=== PATIENT | female | born 1955 | race Caucasian/White ===

== ENCOUNTER 2023-10-04 08:14 | Day surgery (SDC) | payer MEDICARE, OTHER ==
[~2023-10-04] VITALS: Ht 160 cm; Wt 36.8 kg
[2023-10-04] VITALS (8 sets, daily range): BP systolic 113–126; BP diastolic 58–77; PULSE 67–69
[~2023-10-04 08:14] MED LIST: AMLO-257 PO; ATOR40TA28 PO; CEFU250T87 PO; CHOL25TA4 PO; EMPA10TA3 PO; EZET10TA57 PO; LOSA-381 PO; METF-1211 PO; SODIUM CHLORIDE 0.9% 1,000 ML ONE
[2023-10-04] MEDS ORDERED: DiphenhydrAMINE HCL 50 MG CAPSULE PO ONE (09:00)
[2023-10-04] MEDS ORDERED: DIAZEPAM 5 MG TABLET PO ONE (09:00)
[2023-10-04] MEDS ORDERED: SODIUM CHLORIDE 0.9% 1,000 ML IV SCH (09:00)
[2023-10-04] MEDS ORDERED: SODIUM CHLORIDE 0.9% 1,000 ML IV ONE (09:00)
[2023-10-04] MEDS ORDERED: ASPIRIN 81 MG CHEWABLE TABLET PO ONE (09:00)
[2023-10-04] MEDS ORDERED: ASPIRIN 81 MG CHEWABLE TABLET ONE (09:05)
[2023-10-04] MEDS ORDERED: DiphenhydrAMINE HCL 50 MG CAPSULE ONE (09:06)
[2023-10-04] MEDS ORDERED: DIAZEPAM 5 MG TABLET ONE (09:07)
[2023-10-04 09:46] LABS: GLUCOMETER DEV NAME(LOC) SDS.; GLUCOSE,POINT OF CARE 111 MG/DL (70-110)
[2023-10-04] MEDS ORDERED: LIDOCAINE/PF 1% 30 ML VIAL ONE (10:11)
[2023-10-04] MEDS ORDERED: SODIUM BICARBONATE 50 MEQ/50 ML VIAL ONE (10:11)
[2023-10-04] MEDS ORDERED: IOHEXOL 300 MG/ML 100 ML VIAL ONE (10:11)
[2023-10-04] MEDS ORDERED: HEPARIN SODIUM 1000 UNITS/NS 500 ML ONE ×2 (10:35→10:36)
[2023-10-04] MEDS ORDERED: FentaNYL CITRATE PF 100 MCG/2 ML VIAL ONE (10:52)
[2023-10-04] MEDS ORDERED: MIDAZOLAM HCL 2 MG/2 ML VIAL ONE (10:52)
[2023-10-04] MEDS ORDERED: MIDAZOLAM HCL 2 MG/2 ML VIAL IVP ONE (11:15)
[2023-10-04] MEDS ORDERED: HEPARIN SODIUM 2,000 UNITS in HEPARIN SODIUM 1000 UNITS/NS 1,000 ML IARTER ONE (11:15)
[2023-10-04] MEDS ORDERED: LIDOCAINE 1% 30 ML/SOD BICARB 8.4% 4 ML SQ ONE (11:15)
[2023-10-04] MEDS ORDERED: IOHEXOL 300 MG/ML 100 ML VIAL IARTER ONE (11:15)
[2023-10-04] MEDS ORDERED: FentaNYL CITRATE PF 100 MCG/2 ML VIAL IVP ONE (11:15)
== END 2023-10-04 15:25 | disposition home or self-care (01) ==
LOC: CATHLAB 08:14 → EDSEX 10:30 → CATHLAB 15:25
PROVIDERS: ATTEND Internal Medicine Interventional Cardiology
DX: R94.39 Abnormal result of other cardiovascular function study (principal); I25.10 Atherosclerotic heart disease of native coronary artery without angina pectoris; E11.9 Type 2 diabetes mellitus without complications; E78.5 Hyperlipidemia, unspecified; I10 Essential (primary) hypertension; Z98.890 Other specified postprocedural states; Z79.899 Other long term (current) drug therapy
CPT/HCPCS: 93458; 93005; 82962; 99152; C1760; J3010; J1644; J3490 ×2; J2250; J7030; Q9967